=== PATIENT | male | born 1970 | race Two or more races ===

== ENCOUNTER → 2016-07-24 | Outpatient (CLI) | payer OTHER ==
--- NOTE | ~2016-07-24 | US6 ---
[facility] A Service of [facility] RADIOLOGY TEXT RESULTS PATIENT: MIKEY IZQUIERDO LOCATION: [facility] : 74 UNIT #: [id number] AGE: [address]: LU Cortez APRN SEX: M ORDER DR: [id number] [facility]. [place], [place] [address] [id number] O MR#: [id number] Acc #: [id number] NAME: MIKEY IZQUIERDO : 1970 SEX: M STUDY DATE/TIME: 07/24/2016 9:18 UNIT: CG ROOM: STUDY DESCRIPTION: US Abdominal Limited Ordering Physician: Lu Abdalla Aprn MEDICAL IMAGING REPORT This report is preliminary unless electronic signature is present EXAM Right upper quadrant ultrasound 07/24/2016 INDICATIONS 45-year-old male with gallbladder pain. Cholelithiasis on ultrasound 1 year ago. Follow up. Planning to undergo cholecystectomy. TECHNIQUE Sonographic imaging of the right upper quadrant was performed. COMPARISON STUDIES No comparisons. FINDINGS Visualized aspects of the pancreas are unremarkable. Portions were obscured by bowel gas and not seen or evaluated. Survey images of the liver demonstrate no focal liver mass, ascites or intrahepatic ductal dilatation. The liver measures about 15.2 cm long axis. The right kidney is non-obstructed and measures 10.9 cm long axis. Extrahepatic common bile duct measures approximately 3-4 mm. The gallbladder demonstrates cholelithiasis with a wall echo shadow complex, most characteristic of a gallbladder filled with stones. No sonographic Gregg's sign was described by the technologist. No pericholecystic fluid. The gallbladder wall was measured as mildly thickened by the technologist but this is favored to be artifactually increased due to the wall echo shadow complex. IMPRESSION 1. Imaging features most characteristic of a gallbladder filled with stones. The largest visible shadowing stone is about 1.2 cm. 2. No intra- or extrahepatic biliary ductal dilatation. 3. Examination is otherwise negative. [facility] A Service [facility] RADIOLOGY TEXT RESULTS PATIENT: MIKEY IZQUIERDO [facility] #: [id number] : 74 UNIT #: [id number] AGE: [address]: LU Cortez, THEATRICAL SCENIC DESIGNER SEX: M ORDER DR: Dictated by... Nicho Murdock M.D. THIS IS AN ELECTRONICALLY VERIFIED REPORT Nicho Murdock M.D. at 07/27/2016 2:08 PM FEROZ/danielle TD: 07/24/2016 19:10 JOB #: [id number] MEDICAL IMAGING REPORT Page 1 of 1 COPY
== END | disposition home or self-care (01) ==
LOC: CGUS 08:44
DX: K80.60 Calculus of gallbladder and bile duct with cholecystitis, unspecified, without obstruction (principal)
CPT/HCPCS: 76705